=== PATIENT | male | born 1945 | race Caucasian/White ===

== ENCOUNTER 2018-06-13 08:34 | Outpatient (CLI) | payer OTHER ==
[~2018-06-13 08:34] MED LIST: ULTRACET PO
== END 2018-06-13 08:37 | disposition home or self-care (01) ==
LOC: SONOGRAMA 08:34
DX: M25.512 Pain in left shoulder (principal)

== ENCOUNTER 2019-05-09 08:23 | Outpatient (CLI) | payer OTHER | END 2019-05-09 08:25 | disposition home or self-care (01) | LOC: SONOGRAMA 08:23 | DX: R10.84 Generalized abdominal pain (principal) ==

== ENCOUNTER 2019-05-19 07:27 | Outpatient (CLI) | payer OTHER | END 2019-05-19 07:35 | disposition home or self-care (01) | LOC: TOM 07:27 | DX: R10.84 Generalized abdominal pain (principal) ==

== ENCOUNTER 2019-09-09 13:52 | Outpatient (CLI) | payer OTHER | END 2019-09-09 13:57 | disposition home or self-care (01) | LOC: SONOGRAMA 13:52 → MAMO-SONO 14:15 | PROVIDERS: ATTEND Internal Medicine | DX: M75.22 Bicipital tendinitis, left shoulder (principal) ==

== ENCOUNTER 2019-10-06 14:34 | Outpatient (CLI) | payer OTHER | END 2019-10-06 14:40 | disposition home or self-care (01) | LOC: RAD 14:34 | PROVIDERS: ATTEND Physical Medicine & Rehabilitation | DX: M19.042 Primary osteoarthritis, left hand (principal) ==

== ENCOUNTER 2020-10-13 07:52 | Emergency (ER) | payer OTHER ==
[~2020-10-13] VITALS: Ht 193 cm; Wt 93.0 kg
[2020-10-13] MEDS ORDERED: SYNTHROID88 MCG PO (07:58)
[2020-10-13] MEDS ORDERED: TRAVOPROST2.5 ML OP (07:59)
== END 2020-10-13 12:54 | disposition home or self-care (01) ==
LOC: ER 07:52
DX: K59.09 Other constipation (principal); R10.84 Generalized abdominal pain

== ENCOUNTER 2021-06-14 15:36 | Outpatient (CLI) | payer OTHER ==
[~2021-06-14 15:36] MED LIST changes: +SYNTHROID88 MCG PO; +TRAVOPROST2.5 ML OP
== END 2021-06-14 15:43 | disposition home or self-care (01) ==
LOC: RAD 15:36
PROVIDERS: ATTEND Internal Medicine
DX: M25.532 Pain in left wrist (principal); M79.642 Pain in left hand

== ENCOUNTER 2023-01-11 11:58 | Outpatient (CLI) | payer OTHER | END 2023-01-11 12:11 | disposition home or self-care (01) | LOC: MRI 11:58 | PROVIDERS: ATTEND Internal Medicine | DX: M54.50 Low back pain, unspecified (principal); M25.552 Pain in left hip; M75.52 Bursitis of left shoulder | CPT/HCPCS: 73218 ==

== ENCOUNTER 2023-02-20 10:32 | Outpatient (CLI) | payer OTHER | END 2023-02-20 10:45 | disposition home or self-care (01) | LOC: MRI 10:32 | PROVIDERS: ATTEND Orthopaedic Surgery | DX: S83.201A Bucket-handle tear of unspecified meniscus, current injury, left knee, initial encounter (principal) | CPT/HCPCS: 73718 ==

== ENCOUNTER 2023-04-07 10:12 | Emergency (ER) | payer OTHER ==
[~2023-04-07] VITALS: Ht 193 cm; Wt 99.8 kg
[2023-04-07 13:55] LABS: HEMATOCRIT 36.3 % (39.0-48.0); HEMOGLOBIN 12.2 g/dL (13-16.00); MEAN CELL VOLUME 86.6 fL (80.0-100.00); MEAN CORPUSCULAR HEMOGLOBIN 29.1 pg (27.00-32.0); MEAN CORPUSCULAR HGB CONC 33.6 g/dl (32.0-36.0); PLATELET COUNT 185 K/uL (150-450); RED BLOOD COUNT 4.19 M/uL (4.00-6.00)
[2023-04-07 13:57] LABS: CALCIUM 9.7 mg/dL (8.5-10.1); CREATININE SERUM 1.25 mg/dL (0.70-1.30); GFR 56.31; POTASSIUM 4.23 mEq/L (3.5-5.1)
== END 2023-04-07 16:02 | disposition home or self-care (01) ==
LOC: ER 10:13
PROVIDERS: General Practice
DX: B34.9 Viral infection, unspecified (principal); Z20.822 Contact with and (suspected) exposure to COVID-19
CPT/HCPCS: 36415; 93005; 96372; 99284; J1885

== ENCOUNTER 2023-04-09 18:45 | Emergency (ER) | payer OTHER ==
[~2023-04-09] VITALS: Ht 292.1 cm; Wt 99.8 kg
[2023-04-09 22:57] LABS: HEMATOCRIT 35.8 % (39.0-48.0); MEAN CELL VOLUME 84.7 fL (80.0-100.00); MEAN CORPUSCULAR HEMOGLOBIN 28.6 pg (27.00-32.0); MEAN CORPUSCULAR HGB CONC 33.8 g/dl (32.0-36.0); PLATELET COUNT 232 K/uL (150-450); RED BLOOD COUNT 4.22 M/uL (4.00-6.00); RED CELL DISTRIBUTION WIDTH 14.3 % (11.5-14.5)
[2023-04-09 23:15] LABS: PH,URINE 5.5 (5.0-8.0); URINE APPEARANCE Cloudy; URINE BILIRRUBIN Small (NEGATIVE); URINE BLOOD Moderate; URINE COLOR Dark Yellow; URINE GLUCOSE Negative (NEGATIVE); URINE LEUKOCYTE Negative; URINE NITRATE Negative
[2023-04-09 23:15] LABS: HEMOGLOBIN 12.1 g/dL (13-16.00)
[2023-04-09 23:20] LABS: URINE BACTERIA 22.6 uL (0.0-1933); URINE EPITHELIAL CELLS 26.2 uL (0.0-38.8); URINE RBC 39.3 uL (0.0-20.8); URINE WBC 5.1 uL (0.0-23.2)
[2023-04-09 23:21] LABS: ALBUMIN 2.8 gm/dL (3.4-5.0); BILIRUBIN TOTAL 0.85 mg/dL (0.3-1.2); CALCIUM 9.6 mg/dL (8.5-10.1); CREATININE SERUM 1.25 mg/dL (0.70-1.30); GFR 56.31; POTASSIUM 3.69 mEq/L (3.5-5.1); TOTAL PROTEIN 7.8 gm/dL (6.4-8.2)
[2023-04-09 23:53] LABS: URINE PROTEIN 300 (NEGATIVE)
[2023-04-09 23:56] LABS: URINE MUCUS SCANT
== END 2023-04-10 00:30 | disposition home or self-care (01) ==
LOC: ER 18:46
PROVIDERS: General Practice
DX: J06.9 Acute upper respiratory infection, unspecified (principal); E03.9 Hypothyroidism, unspecified
CPT/HCPCS: 36415; 71046; 96365; 99284; J3490

== ENCOUNTER 2024-02-10 08:02 | Outpatient (CLI) | payer OTHER | END 2024-02-10 08:03 | disposition home or self-care (01) | LOC: NUCLEAR 08:02 | PROVIDERS: ATTEND Internal Medicine | DX: R00.0 Tachycardia, unspecified (principal) ==